=== PATIENT | female | born 1945 | race Caucasian/White ===

== ENCOUNTER 2018-07-01 10:09 | Day surgery (SDC) | payer MEDICARE, OTHER ==
[2018-06-26 15:32] LABS: BASOPHILS % (AUTO) 0.5 % (0-1); EOSINOPHILS # (AUTO) 0.2 X10'3 (0-0.9); EOSINOPHILS % (AUTO) 2.9 % (0-6); LYMPHOCYTES # (AUTO) 1.3 X10'3 (1.1-4.8); LYMPHOCYTES % (AUTO) 20.6 % (21-51); MEAN CORPUSCULAR HEMOGLOBIN 27.7 PG (27.0-31.0); MEAN CORPUSCULAR HGB CONC 33.5 g/dL (33.0-36.5); MEAN CORPUSCULAR VOLUME 82.5 FL (78-98); MEAN PLATELET VOLUME 9.3 FL (7.4-10.4); MONOCYTES # (AUTO) 0.4 X10'3 (0-0.9); MONOCYTES % (AUTO) 6.9 % (2-12); NEUTROPHILS # (AUTO) 4.2 X10'3 (1.8-7.7); NEUTROPHILS % (AUTO) 69.1 % (42-75); PRE OP HEMATOCRIT 38.9 % (35.0-45.0); PRE OP PLATELET COUNT 249 X10'3 (140-440); RED BLOOD COUNT 4.71 X10'6 (4.20-5.60); RED CELL DISTRIBUTION WIDTH 13.6 % (11.5-14.5)
[2018-06-26 15:51] LABS: ALBUMIN 3.9 G/DL (3.4-5.0); ALBUMIN/GLOBULIN RATIO 1.1 (1.1-1.5); ALKALINE PHOSPHATASE 100 IU/L (46-116); BLOOD UREA NITROGEN 20 MG/DL (7-18); BUN/CREATININE RATIO 20.8 (6.6-38.0); CALCIUM 8.7 MG/DL (8.5-10.1); CHLORIDE 105 MMOL/L (99-107); CREATININE 0.96 MG/DL (0.40-0.90); PRE OP ALT 29 U/L (30-65); PRE OP ANION GAP 8 (8-16); PRE OP AST 18 U/L (10-37); PRE OP BILIRUB, TOTAL 0.5 MG/DL (0.0-1.0); PRE OP GLUCOSE 131 MG/DL (70-104); PRE OP POTASSIUM 3.6 MMOL/L (3.4-5.1); PRE OP SODIUM 142 MMOL/L (135-145); TOTAL CARBON DIOXIDE 29.2 MMOL/L (24-32); TOTAL PROTEIN 7.4 G/DL (6.4-8.2); eGFR 57 ML/MIN
[~2018-07-01] VITALS: Ht 157.5 cm; Wt 95.6 kg
[2018-07-01] VITALS (9 sets, daily range): BP systolic 125–155; BP diastolic 54–84
[~2018-07-01 10:09] MED LIST: ACET1TAB12 PO; ATOR40TA PO; DET2LAC PO; ESOM20CA PO; FURO80TA87 PO; LACT1CAP65 PO; LOSA25TA96 PO; URSO300C8 PO
[2018-07-01] MEDS ORDERED: ceFAZolin 2gm in dextrose, iso 100 ML IV ONE (11:00)
[2018-07-01] MEDS ORDERED: albuterol 2.5 MG/3 ML nebule NEB ONE (11:00)
[2018-07-01] MEDS ORDERED: ringers solution, lacted 1,000 ML IV SCH ×2 (11:00→15:32)
[2018-07-01] MEDS ORDERED: famotidine 20mg tablet PO ONE (11:00)
[2018-07-01] MEDS ORDERED: BUPIVAcaine/PF 2.5 mg/ml (0.25%) 30ml vial ONE (14:06)
[2018-07-01] MEDS ORDERED: fentaNYL/PF 50MCG/1 ML 2ML syringe ONE ×2 (14:11→14:45)
[2018-07-01] MEDS ORDERED: propofol inj 20 ML IV ONE (15:13)
[2018-07-01] MEDS ORDERED: acetaminophen 1,000mg/100ml IV 100 ML IV ONE (15:13)
[2018-07-01] MEDS ORDERED: ondansetron/PF 4mg/2ml inj ONE (15:13)
[2018-07-01] MEDS ORDERED: LIDOcaine 2% (20mg/ml) 5ml vial ONE (15:13)
[2018-07-01] MEDS ORDERED: dexamethasone sod phosphate 4mg/ml inj. ONE (15:13)
[2018-07-01] MEDS ORDERED: labetalol 20mg/4ml (5mg/ml) syringe IV ONE (15:13)
[2018-07-01] MEDS ORDERED: ePHEDrine 50MG/ML INJ. ONE (15:13)
--- NOTE | 2018-07-01 15:30 | NUR ---
Received from OR via BED, accompanied by Anesthesiologist DR MALHOTRA and report given by Anesthesiolgist. PATIENT A&OX4, DENIES PAIN, V/S WNL, NEUROVASCULAR CHECKS INTACT, 20G PIV RUE, SCD ON, DRESSING TO LEFT WRIST CDI ELEVATED WITH ICEBAG APPLIED.
[2018-07-01] MEDS ORDERED: ondansetron/PF 4mg/2ml inj IV PRN (15:35)
[2018-07-01] MEDS ORDERED: HYDROmorphone inj. 0.5 MG/0.5 ML DISP.SYRIN IV PRN ×2 (15:35)
[2018-07-01] MEDS ORDERED: morphine 4 MG/ML inj SYRINge IV PRN (15:35)
[2018-07-01] MEDS ORDERED: acetaminophen w/codeine (30MG) #3 tablet PO ONE (16:05)
--- NOTE | 2018-07-01 16:30 | NUR ---
PATIENT A&OX4, DENIES PAIN, V/S WNL, NEUROVASCULAR CHECKS INTACT, 20G PIV RUE D/C, SCD OFF, DRESSING TO LEFT WRIST CDI ELEVATED WITH ICEBAG APPLIED. I HAVE REVIEWED D/C INSTRUCTIONS WITH PATIENT AND FAMILY AND THEY HAVE VERBALIZED UNDERSTANDING. PATIENT D/C HOME WITH ALL BELONGINGS AND FAMILY GAVE TRANSPORT HOME.
== END 2018-07-01 16:30 | disposition home or self-care (01) ==
LOC: PAS 10:09
PROVIDERS: ATTEND Orthopaedic Surgery Hand Surgery
DX: S52.572A Other intraarticular fracture of lower end of left radius, initial encounter for closed fracture (principal); M19.041 Primary osteoarthritis, right hand; M19.042 Primary osteoarthritis, left hand; J45.909 Unspecified asthma, uncomplicated; I10 Essential (primary) hypertension; F41.8 Other specified anxiety disorders; M19.90 Unspecified osteoarthritis, unspecified site; W19.XXXA Unspecified fall, initial encounter; Y93.89 Activity, other specified; Y92.89 Other specified places as the place of occurrence of the external cause; Y99.8 Other external cause status; Z79.899 Other long term (current) drug therapy; Z72.89 Other problems related to lifestyle; Z87.891 Personal history of nicotine dependence
CPT/HCPCS: 25609; 36415; 80053; 82948; 85025; 93005; 94640; C1713; J0131; J0690; J1100; J2001; J2405; J2704; J3010; J3490; A6449; A7000; J7120

== ENCOUNTER 2020-06-26 08:43 | Day surgery (SDC) | payer MEDICARE, OTHER ==
[2020-06-16 11:46] LABS: BASOPHILS % (AUTO) 0 % (0-1); EOSINOPHILS # (AUTO) 0.2 X10'3 (0-0.9); EOSINOPHILS % (AUTO) 2.2 % (0-6); LYMPHOCYTES # (AUTO) 1.3 X10'3 (1.1-4.8); LYMPHOCYTES % (AUTO) 18.6 % (21-51); MEAN CORPUSCULAR HEMOGLOBIN 27.4 PG (27.0-31.0); MEAN CORPUSCULAR VOLUME 83.1 FL (78-98); MEAN PLATELET VOLUME 9.4 FL (7.4-10.4); MONOCYTES # (AUTO) 0.5 X10'3 (0-0.9); MONOCYTES % (AUTO) 7.1 % (2-12); NEUTROPHILS # (AUTO) 5.3 X10'3 (1.8-7.7); NEUTROPHILS % (AUTO) 72.1 % (42-75); PRE OP HEMATOCRIT 40.5 % (35.0-45.0); PRE OP HEMOGLOBIN 13.4 g/dL (12.0-16.0); PRE OP PLATELET COUNT 211 X10'3 (140-440); RED BLOOD COUNT 4.87 X10'6 (4.20-5.60); RED CELL DISTRIBUTION WIDTH 13.8 % (11.5-14.5)
[2020-06-16 11:53] LABS: ALBUMIN 3.7 G/DL (3.4-5.0); ALBUMIN/GLOBULIN RATIO 1.1 (1.1-1.5); ALKALINE PHOSPHATASE 83 IU/L (46-116); BLOOD UREA NITROGEN 17 MG/DL (7-18); CHLORIDE 106 MMOL/L (99-107); CREATININE 0.85 MG/DL (0.40-0.90); PRE OP ALT 34 U/L (30-65); PRE OP ANION GAP 8 (8-16); PRE OP AST 20 U/L (10-37); PRE OP BILIRUB, TOTAL 0.4 MG/DL (0.0-1.0); PRE OP GLUCOSE 98 MG/DL (70-104); PRE OP POTASSIUM 3.8 MMOL/L (3.4-5.1); PRE OP SODIUM 144 MMOL/L (135-145); TOTAL CARBON DIOXIDE 29.9 MMOL/L (24-32); TOTAL PROTEIN 7.1 G/DL (6.4-8.2); eGFR 65 ML/MIN
[2020-06-16 12:01] LABS: CALCIUM 8.8 MG/DL (8.5-10.1)
[~2020-06-26] VITALS: Ht 157.5 cm; Wt 89.3 kg
[~2020-06-26 08:43] MED LIST changes: -ACET1TAB12 PO; +BUPIVAcaine/PF 2.5 mg/ml (0.25%) 30ml vial ONE; +CHOL50004 PO; +CYAN50005 PO; +Nyquil PO; +[UNRECOGNIZED DRUG - OTHER] PO; +cefazolin/dext.iso 2gm/100ml IV ONE; +famotidine 20mg tablet PO ONE; +ringers solution, lacted 1,000 ML IV SCH
[2020-06-26 09:00] VITALS: BP 143/70
[2020-06-26] MEDS ORDERED: ringers solution, lacted 1,000 ML IV SCH (09:25)
[2020-06-26] MEDS ORDERED: morphine 4 MG/ML inj SYRINge IV PRN (09:25)
[2020-06-26] MEDS ORDERED: proCHLORperazine 10 MG/2 ml inj IV PRN (09:25)
[2020-06-26] MEDS ORDERED: ondansetron/PF 4mg/2ml inj IV PRN (09:25)
[2020-06-26] MEDS ORDERED: morphine 2 MG/ML inj. syringe IV PRN (09:25)
[2020-06-26] MEDS ORDERED: meperidine/PF 25mg/ml syringe IV PRN ×3 (09:25)
[2020-06-26] MEDS ORDERED: LIDOcaine 0.5% (5mg/ml) 50ml vial ONE (10:23)
[2020-06-26] MEDS ORDERED: midazolam 1 mg/ML 2ml injection ONE (10:23)
[2020-06-26] MEDS ORDERED: fentaNYL/PF 50MCG/1 ML 2ML syringe ONE (10:23)
[2020-06-26] MEDS ORDERED: propofol inj 20 ML IV ONE (11:05)
[2020-06-26 11:19] VITALS: BP 112/69
--- NOTE | 2020-06-26 11:19 | NUR ---
Received from OR via [facility], accompanied by Anesthesiologist angelina and report given by Anesthesiolgist.rt hand warm, dressing cdi. vss, iv patent. no co pain.is wiggling thumb on rt hand, but has no sensation yet.
[2020-06-26 11:29] VITALS: BP 114/58
[2020-06-26 11:39] VITALS: BP 106/52
[2020-06-26 11:49] VITALS: BP 104/55
--- NOTE | 2020-06-26 11:59 | NUR ---
iv out. vss, no pain, still decreased sensation, is moving thumb. dressing cdi. dc to home with daughter driving. given instructions, states understands.
== END 2020-06-26 11:59 | disposition home or self-care (01) ==
LOC: PAS 08:43
PROVIDERS: ATTEND Orthopaedic Surgery Hand Surgery
DX: G56.01 Carpal tunnel syndrome, right upper limb (principal); M19.041 Primary osteoarthritis, right hand; M19.042 Primary osteoarthritis, left hand; M51.26 Other intervertebral disc displacement, lumbar region; M51.37 Other intervertebral disc degeneration, lumbosacral region; M46.1 Sacroiliitis, not elsewhere classified; M47.816 Spondylosis without myelopathy or radiculopathy, lumbar region; Z98.890 Other specified postprocedural states; Z88.8 Allergy status to other drugs, medicaments and biological substances; Z79.899 Other long term (current) drug therapy; Z87.891 Personal history of nicotine dependence; Z72.89 Other problems related to lifestyle; Z82.3 Family history of stroke; Z80.0 Family history of malignant neoplasm of digestive organs
CPT/HCPCS: 26860; 36415; 64721; 80053; 85025; A6222; C1713; J2001; J2250; J2704; J3010; J3490; A4215; A4615; A4618; A6449; J7120

== ENCOUNTER 2022-07-16 15:21 | Emergency (ER) | payer MEDICARE, OTHER ==
[~2022-07-16] VITALS: Ht 157.5 cm; Wt 86.4 kg
[~2022-07-16 15:21] MED LIST changes: -BUPIVAcaine/PF 2.5 mg/ml (0.25%) 30ml vial ONE; -cefazolin/dext.iso 2gm/100ml IV ONE; -famotidine 20mg tablet PO ONE; -ringers solution, lacted 1,000 ML IV SCH
[2022-07-16] MEDS ORDERED: LIDOcaine 5% patch TP STA (18:15)
[2022-07-16] MEDS ORDERED: acetaminophen w/codeine (30MG) #3 tablet PO ONE (18:15)
[2022-07-16] MEDS ORDERED: ACET-1059 PO (18:34)
[2022-07-16] MEDS ORDERED: LIDO-15 TOP (18:34)
[2022-07-16 18:49] VITALS: BP 164/66
== END 2022-07-16 19:15 | disposition home or self-care (01) ==
LOC: ER 15:22
DX: S00.211A Abrasion of right eyelid and periocular area, initial encounter (principal); I10 Essential (primary) hypertension; R07.89 Other chest pain; W19.XXXA Unspecified fall, initial encounter; Y93.89 Activity, other specified; Y92.89 Other specified places as the place of occurrence of the external cause; Y99.8 Other external cause status
CPT/HCPCS: 70450; 70486; 72125; 99284